=== PATIENT | male | born 1985 ===

== ENCOUNTER → 2024-04-03 08:31 | Outpatient (REF) | payer OTHER, SELFPAY | LOC: PAVMRI 08:31 | PROVIDERS: ATTENDING PHYSICIAN Internal Medicine Cardiovascular Disease; FAMILY PHYSICIAN Family Medicine | DX: I10 Essential (primary) hypertension (principal); I48.0 Paroxysmal atrial fibrillation; I34.0 Nonrheumatic mitral (valve) insufficiency | CPT/HCPCS: 75561; 75565; A9585 ==